=== PATIENT | male | born 1965 | race Caucasian/White ===

== ENCOUNTER 2018-01-25 08:48 | Day surgery (SDC) | payer OTHER ==
[~2018-01-25] VITALS: Ht 170.2 cm; Wt 80.3 kg
[~2018-01-25 08:48] MED LIST: NS 1,000 ML IV ONE; PAXI20TA29 PO; ZYRT10CA5 PO
[2018-01-25] MEDS ORDERED: PROPOFOL 200 MG/20 ML VIAL As Ordered ONE (09:43)
[2018-01-25] MEDS ORDERED: LIDOCAINE 2% INJ 100 MG/5 ML SDV (FOR ANES.) As Ordered ONE (09:43)
--- NOTE | 2018-01-25 10:07 | ROOR ---
Patient Name: Ronny Mehta Procedure Date: 01/25/2018 9:47 AM Date of : 1965 Age: 52 Room: [facility] Gender: Male Note Status: Finalized Procedure: Colonoscopy Indications: Screening for colorectal malignant neoplasm Providers: Ortega Kaur Jr, MD Referring MD: [facility], Admin. Requesting Provider: Medicines: Propofol per Anesthesia Complications: No immediate complications. Procedure: Pre-Anesthesia Assessment: - Prior to the procedure, a History and Physical was performed, and patient medications and allergies were reviewed. The patient is competent. The risks and benefits of the procedure and the sedation options and risks were discussed with the patient. All questions were answered and informed consent was obtained. Patient identification and proposed procedure were verified by the physician and the nurse in the pre-procedure area and in the procedure room. Mental Status Examination: alert and oriented. Airway Examination: normal oropharyngeal airway and neck mobility. Respiratory Examination: clear to auscultation. CV Examination: normal. ASA Grade Assessment: II - A patient with mild systemic disease. After reviewing the risks and benefits, the patient was deemed in satisfactory condition to undergo the procedure. The anesthesia plan was to use moderate sedation / analgesia (conscious sedation). Immediately prior to administration of medications, the patient was re-assessed for adequacy to receive sedatives. The heart rate, respiratory rate, oxygen saturations, blood pressure, adequacy of pulmonary ventilation, and response to care were monitored throughout the procedure. The physical status of the patient was re-assessed after the procedure. The Colonoscope was introduced through the anus and advanced to the cecum, identified by appendiceal orifice and ileocecal valve. The colonoscopy was performed without difficulty. The patient tolerated the procedure well. The quality of the bowel preparation was adequate. Findings: The rectum, recto-sigmoid colon, sigmoid colon, descending colon, transverse colon, ascending colon, cecum, appendiceal orifice and ileocecal valve appeared normal. Impression: - The rectum, recto-sigmoid colon, sigmoid colon, descending colon, transverse colon, ascending colon, cecum, appendiceal orifice and ileocecal valve are normal. - No specimens collected. Recommendation: - Discharge patient to home (ambulatory). - Repeat colonoscopy in 10 years for screening purposes. Ortega Kaur MD Ortega Kaur Jr, MD 01/25/2018 10:06:53 AM This report has been signed electronically. Number of Addenda: 0 Note Initiated On: 01/25/2018 9:47 AM Estimated Blood Loss: Estimated blood loss: none.
[2018-01-25 10:32] VITALS: BP 122/79
== END 2018-01-25 10:34 | disposition home or self-care (01) ==
LOC: M OPP 08:48
PROVIDERS: ATTEND Surgery
DX: Z12.11 Encounter for screening for malignant neoplasm of colon (principal)